=== PATIENT | male | born 1975 | race Caucasian/White ===

== ENCOUNTER 2024-09-28 05:33 | Inpatient (IN) | payer SELFPAY ==
[~2024-09-28] VITALS: Ht 190.5 cm; Wt 109.5 kg
[2024-09-28] VITALS (17 sets, daily range): BP systolic 119–159; BP diastolic 65–94; PULSE 94–119; RESP 7–19; TEMP 97.6–98.8; O2SAT 91–100
--- NOTE | 2024-09-28 05:45 | VISIT NOTE ---
ED Rapid Medical Assessment History This is a 49-year-old previously healthy gentleman with no prior history of abdominal surgeries presents for evaluation of lower abdominal pain, mostly concentrated in the left lower quadrant that began at midnight, no obvious trigger, trauma provocation. The particular palliating or aggravating factors were elicited with the gentleman. The pain is moderate to severe in its intensity. It is not migratory, not ripping, not tearing. Did not attempt to treat it. This never happened in the past. Denies any concerns for tobacco, alcohol or illicit substances use Exam: GENERAL: Awake, alert, oriented, GCS 15, no apparent distress, non-toxic appearing, answers questions, follows commands appropriately. Examined in bed 1. HEENT: Atraumatic, normocephalic, pupils equal, extraocular muscles intact, sclerae anicteric, mucus membranes moist, oropharynx is clear, no stridor. NECK: supple, full active range of motion, trachea midline, no thyromegaly, no lymphadenopathy, no JVD. CARDIOVASCULAR: regular rate/rhythm, no murmurs/gallops/rubs, Pulses are 2+ in all extremities and symmetric. Capillary refill less than 2 seconds. PULMONARY: Nonlabored, good air movement ,no respiratory distress, speaking in full sentences, clear to auscultation bilaterally, no wheezing, no ronchi, no rales, no accessory muscle use. GASTROINTESTINAL: Soft, lower abdominal tenderness to palpation reproducing chief complaint, mostly concentrated in the left lower quadrant, no guarding or rebound, non-distended, normal active bowel sounds, no organomegaly, no pulsatile masses, no CVA tenderness. NEUROLOGIC: Lucid with normal mental status. Normal facial symmetry. Moves all extremities symmetrically and with purpose. No truncal ataxia. Speech is fluid without evidence of dysarthria or aphasia, no focal deficits appreciated. MUSCULOSKELETAL: There is full range of motion of all extremities. There is no joint pain or joint swelling or joint erythema. There is no muscle pain or tenderness or swelling. EXTREMITIES: warm, well-perfused, no cyanosis, no clubbing, no edema, no acute deformities. Skin: warm, dry, no rashes or lesions, no jaundice, no petechiae orpurpura. No ecchymosis. PSYCHIATRIC: Normal affect, normal insight, normal concentration. Focused exam: [] Assessment and Plan Differential diagnosis considered includes acute appendicitis, acute cholecystitis, pancreatitis, gastritis, PUD, diverticulitis, mesenteric ischemia, abdominal aortic aneurysm, bowel obstruction, enteritis, colitis, fecal impaction, volvulus, IBS, inflammatory bowel disease, specific food intolerance, peritonitis, perforated viscous, malignancy, UTI, abscess, and abdominal pain NOS. History, physical exam, and workup exclude many of the more serious causes listed above. We will obtain laboratory workup, CT, provide with pain medication and nausea palliation Initial impression: 1. Lower abdominal pain MALCOLM VALENTINE DO Sep 28, 2024 05:45
[2024-09-28] MEDS: morphine 4 MG/ML inj SYRINge IV ONE ×2 (05:58→07:27)
[2024-09-28] MEDS: ondansetron/PF 4mg/2ml inj IV ONE (06:00)
[2024-09-28] MEDS ORDERED: iohexol 300mg/ml 100ml inj. ONE (06:32)
--- NOTE | 2024-09-28 06:42 | Physician Documentation ---
History of Present Illness Chief Complaint: Abdominal Pain w/vomiting Stated Complaint: ABDOMINAL PAIN Time Seen by MD: 06:19 OK to notify your PCP?: Yes Source: patient, RN/MD, RN notes reviewed Mode of Arrival: POV Exam Limitations: no limitations HPI This is a 49-year-old previously healthy gentleman with no prior history of abdominal surgeries presents for evaluation of lower abdominal pain, mostly concentrated in the left lower quadrant that began at midnight, no obvious trigger, trauma provocation. The particular palliating or aggravating factors were elicited with the gentleman. The pain is moderate to severe in its intensity. It is not migratory, not ripping, not tearing. Did not attempt to treat it. This never happened in the past. Denies any concerns for tobacco, alcohol or illicit substances use Medication Reconciliation Allergies: Coded Allergies: No Known Allergies (Unverified , 09/28/24) Miscellaneous Medications Home Med List (No Home Medications), (Reported) Past Medical History Past Medical History: No Pertinent History Past Surgical History: no surgical history Smoking Status: Never smoker Alcohol Use: None Drug Use: none Lives In: Home Review of Systems All Other Systems at this time: Reviewed and Negative ROS As stated above in the HPI, otherwise all systems are reviewed and negative. Physical Exam Vital Signs: RN Vital Signs have been reviewed: Yes, Temperature: 98.0, Heart Rate: 81, Respiratory Rate: 18, BP: 163/95, Pulse Oximetry: 97, Weight: 95.450 Oxygen Flow Rate: 0 Physical Exam Exam: GENERAL: Awake, alert, oriented, GCS 15, no apparent distress, non-toxic appearing, answers questions, follows commands appropriately. Examined in bed 1. HEENT: Atraumatic, normocephalic, pupils equal, extraocular muscles intact, sclerae anicteric, mucus membranes moist, oropharynx is clear, no stridor. NECK: supple, full active range of motion, trachea midline, no thyromegaly, no lymphadenopathy, no JVD. CARDIOVASCULAR: regular rate/rhythm, no murmurs/gallops/rubs, Pulses are 2+ in all extremities and symmetric. Capillary refill less than 2 seconds. PULMONARY: Nonlabored, good air movement ,no respiratory distress, speaking in full sentences, clear to auscultation bilaterally, no wheezing, no ronchi, no rales, no accessory muscle use. GASTROINTESTINAL: Soft, lower abdominal tenderness to palpation reproducing chief complaint, mostly concentrated in the left lower quadrant, no guarding or rebound, non-distended, normal active bowel sounds, no organomegaly, no pulsatile masses, no CVA tenderness. NEUROLOGIC: Lucid with normal mental status. Normal facial symmetry. Moves all extremities symmetrically and with purpose. No truncal ataxia. Speech is fluid without evidence of dysarthria or aphasia, no focal deficits appreciated. MUSCULOSKELETAL: There is full range of motion of all extremities. There is no joint pain or joint swelling or joint erythema. There is no muscle pain or tenderness or swelling. EXTREMITIES: warm, well-perfused, no cyanosis, no clubbing, no edema, no acute deformities. Skin: warm, dry, no rashes or lesions, no jaundice, no petechiae orpurpura. No ecchymosis. PSYCHIATRIC: Normal affect, normal insight, normal concentration. Progress Progress Note 0800: Case discussed with Dr. Parkinson, surgeon, who will consult and take the patient to surgery. 0828: Dr. Sandoval, hospitalist admitted the patient. Results/Orders Reviewed/noted all lab results: Yes Results/Orders Medications Received in ER Medications (Trade) Dose Ordered Sig/Guido Route PRN Reason Start Time Stop Time Status Last Admin Dose Admin (Zofran 4mg/2ml vial) 8 mg ONCE ONCE IV 09/28/24 05:45 09/28/24 05:46 DC 09/28/24 06:00 8 MG (morphine inj.) 4 mg ONCE ONCE IV 09/28/24 05:45 09/28/24 05:46 DC 09/28/24 05:58 4 MG Vital Signs 09/28/24 09/28/24 09/28/24 09/28/24 05:38 05:46 06:11 06:28 Temp 98.0 98.0 Pulse 90 87 81 Resp 16 19 16 18 B/P (MAP) 193/114 168/99 (122) 163/95 (117) Pulse Ox 97 100 97 O2 Flow Rate 0 0 Re-Evaluation Re-Evaluation : Re-Evaluation: Improved Progress Patient presents with severe abdominal pain. He was seen by the morning physician. Patient has a leukocytosis as white count is 14. Cat scan showed positive appendicitis. Antibiotics were given fluids as well as repeated pain medications surgery was consulted and ultimately admitted to the hospitalist service for emergent surgery. There was no signs of perforation at this time. Patient seemed to have significant amounts of pain requiring narcotics. Otherwise patient was then ready and scheduled left NPO for surgery. Patient's laboratory work showed a leukocytosis of white count of 14 and 86 neutrophils borderline anemia with hemoglobin of 13 and hematocrit 40. Chemistry showed some elevated glucose at 1:57 a.m. signs mild acidosis with a CO2 of 23.6. Magnesium was low at 1.3 patient did receive magnesium supplementation. Also pain medication including Dilaudid and cefepime. Continuous school lunch monitor interpretation shows sinus tachycardia heart rate 100s, abnormal, my interpretation. Pulse oximetry monitor interpretation shows normal oxygenation at 97% room air, normal, my interpretation. EKG/XRAY/CT/US/VASC/MRI Chest X-Ray : Additional Comments EXAM: DI CHEST,SINGLE VIEW Indication: CHEST PAIN Technique: Single frontal view of the chest was obtained Comparison: None FINDINGS: Lines and Tubes: None Lungs: No focal consolidation. Pleura: No effusion. No pneumothorax. Cardiomediastinal contours: Unremarkable Bones: No acute osseous abnormality. IMPRESSION: No acute cardiopulmonary disease. Reviewed by myself (Dr. Vivar) CT : Interpreted By: radiologist CT: abdomen/pelvis With Contrast?: No Impression Exam: CT CT ABDOMEN PELVIS W/ IV CONTRAST History: Lower abdominal pain, left lower quadrant and greater than all Comparison Study: None Contrast: Type of contrast: Omnipaque 300 Contrast injected:100ml Contrast wasted: 0 TECHNIQUE: CT scan of the abdomen pelvis was performed with intravenous contrast. Coronal and sagittal reformatted images are submitted. Radiation Dose Information: CT Dose: CTDI volume is 29.4 mGy. Dose-length product is 1621.2 mGy*cm FINDINGS: Lung Bases: No acute or significant lung base finding. Normal heart size. No pleural or pericardial effusion. Liver: The liver is normal in size. No focal lesions. Normal hepatic vascular enhancement. Diffusely hypoattenuating liver parenchyma consistent with hepatic steatosis. Gallbladder and Biliary Tree: The gallbladder is unremarkable. No intrahepatic biliary ductal dilatation. The common bile duct measures 6 mm in diameter. Spleen: Unremarkable Pancreas: The pancreas is normal in appearance without focal lesions or abnormal enhancement. Adrenal Glands: Unremarkable Kidneys: Kidneys demonstrate normal symmetric enhancement without focal lesions, calculi or hydronephrosis. Bladder: Unremarkable Bowel: The stomach is grossly normal in appearance. Small bowel and colon are normal in caliber and distribution. The appendix is dilated and fluid-filled with periappendiceal fat stranding. The appendix measures 1.3 cm in diameter. The appendix contains multiple appendicoliths. Peritoneum: No pneumoperitoneum. No ascites. Lymphadenopathy: No mesenteric, retroperitoneal or periportal lymphadenopathy. Abdominal Wall and Mesentery: Unremarkable. Vasculature: The visualized abdominal aorta is normal in size and caliber. Abdominal and pelvic vessels demonstrate normal enhancement. Pelvic Organs: Unremarkable Musculoskeletal: No aggressive focal bony lesions, acute fractures or dislocation. Soft tissues: Unremarkable. IMPRESSION: 1. Acute uncomplicated appendicitis. All CT scans at this medical facility are performed using dose modulation techniques as appropriate to a performed exam including the following: Automated exposure control was utilized; adjustment of the MA and/or KV according to patient size; and use of iterative reconstruction technique. Reviewed by myself (Dr. Vivar) Medical Decision Making Additional info obtained from: old records Differential Dx:Considerations: Include: Bowel obstruction, Cholangitis, Cholelithasis, Constipation, Diverticular disease, Gastritis/PUD, Gastroenteritis, GI hemorrhage, Hernia, Hepatitis, Inflammatory BD, Ischemic bowel, Pancreatitis, Urinary obstruction, Urinary tract infection, Urolithiasis, Other Departure Time of Disposition: 08:00 Disposition: 09 ADMITTED INPATIENT Admitted to Inpatient Unit: yes, to hospitalist Impression: Primary Impression: Acute appendicitis Qualified Codes: K35.80 - Unspecified acute appendicitis Additional Impression: Hypomagnesemia Condition: Guarded Education Educated: Patient Educated regarding: diagnosis, need for follow up, other Critical Care Note Total Time (mins): 33 Critical Care Note The very real possibility of a deterioration of this patient's condition r equired the highest level of my preparedness for sudden, emergent intervention. I provided critical care services, which included medication orders, frequent reevaluations of the patient's condition and response to treatment, ordering and reviewing test results, and discussing the case with various consultants. Excludes time spent performing separately billable procedures. The critical care time associated with the care of the patient was. 33 minutes Signature Scribe Signature: Scribed for Kyle Vivar MD by Ludy Webster . 09/28/24 10:05 Attestation: The note accurately reflects work and decisions made by me.Kyle Vivar MD 09/28/24 06:42 KYLE VIVAR MD Sep 28, 2024 06:42 LUDY HOFFMANN Sep 28, 2024 10:10
--- NOTE | 2024-09-28 07:36 | RADIOLOGY REPORT ---
Exam: CT CT ABDOMEN PELVIS W/ IV CONTRAST History: Lower abdominal pain, left lower quadrant and greater than all Comparison Study: None Contrast: Type of contrast: Omnipaque 300 Contrast injected:100ml Contrast wasted: 0 TECHNIQUE: CT scan of the abdomen pelvis was performed with intravenous contrast. Coronal and sagitt al reformatted images are submitted. Radiation Dose Information: CT Dose: CTDI volume is 29.4 mGy. Dose-length product is 1621.2 mGy*cm FINDINGS: Lung Bases: No acute or significant lung base finding. Normal heart size. No pleural or pericardial effusion. Liver: The liver is normal in size. No focal lesions. Normal hepatic vascular enhancement. Diffusel y hypoattenuating liver parenchyma consistent with hepatic steatosis. Gallbladder and Biliary Tree: The gallbladder is unremarkable. No intrahepatic biliary ductal dilatat ion. The common bile duct measures 6 mm in diameter. Spleen: Unremarkable Pancreas: The pancreas is normal in appearance without focal lesions or abnormal enhancement. Adrenal Glands: Unremarkable Kidneys: Kidneys demonstrate normal symmetric enhancement without focal lesions, calculi or hydroneph rosis. Bladder: Unremarkable Bowel: The stomach is grossly normal in appearance. Small bowel and colon are normal in caliber and d istribution. The appendix is dilated and fluid-filled with periappendiceal fat stranding. The appen ariel measures 1.3 cm in diameter. The appendix contains multiple appendicoliths. Peritoneum: No pneumoperitoneum. No ascites. Lymphadenopathy: No mesenteric, retroperitoneal or periportal lymphadenopathy. Abdominal Wall and Mesentery: Unremarkable. Vasculature: The visualized abdominal aorta is normal in size and caliber. Abdominal and pelvic vess els demonstrate normal enhancement. Pelvic Organs: Unremarkable Musculoskeletal: No aggressive focal bony lesions, acute fractures or dislocation. Soft tissues: Unremarkable. IMPRESSION: 1. Acute uncomplicated appendicitis. All CT scans at this medical facility are performed using dose modulation techniques as appropriate t o a performed exam including the following: Automated exposure control was utilized; adjustment of th e MA and/or KV according to patient size; and use of iterative reconstruction technique.
[2024-09-28 07:49] LABS: BASOPHILS % (AUTO) 0.2 % (0-1); EOSINOPHILS % (AUTO) 0 % (0-6); HEMATOCRIT 40.5 % (42.0-52.0); HEMOGLOBIN 13.9 g/dl (14.0-17.9); LYMPHOCYTES # (AUTO) 1.1 X10'3 (1.1-4.8); LYMPHOCYTES % (AUTO) 7.9 % (21-51); MEAN CORPUSCULAR HEMOGLOBIN 32.6 PG (27.0-31.0); MEAN CORPUSCULAR HGB CONC 34.4 g/dL (33.0-36.5); MEAN CORPUSCULAR VOLUME 94.9 FL (78-98); MEAN PLATELET VOLUME 7.5 FL (7.4-10.4); MONOCYTES # (AUTO) 0.8 X10'3 (0-0.9); MONOCYTES % (AUTO) 5.8 % (2-12); NEUTROPHILS # (AUTO) 12.1 X10'3 (1.8-7.7); NEUTROPHILS % (AUTO) 86.1 % (42-75); PLATELET COUNT 190 X10'3 (140-440); RED BLOOD COUNT 4.27 X10'6 (4.70-6.10); RED CELL DISTRIBUTION WIDTH 13.1 % (11.5-14.5)
[2024-09-28] MEDS ORDERED: cefepime 2g/NS 100ml ADVANTAGE 100 ML IV ONE (08:00)
[2024-09-28 08:02] LABS: ALANINE AMINOTRANSFERASE 59 U/L (12-78); ALBUMIN 4.2 G/DL (3.4-5.0); ALKALINE PHOSPHATASE 133 IU/L (46-116); ANION GAP 13 (8-16); ASPARTATE AMINO TRANSFERASE 61 U/L (10-37); BILIRUBIN,TOTAL 0.9 MG/DL (0.1-1.0); BLOOD UREA NITROGEN 11 MG/DL (7-18); BUN/CREATININE RATIO 10.1 (10.0-20.0); CALCIUM 8.9 MG/DL (8.5-10.1); CHLORIDE 97 MMOL/L (99-107); CREATININE 1.09 MG/DL (0.60-1.10); GLUCOSE 134 MG/DL (70-104); LIPASE 15 U/L (16-77); MAGNESIUM 1.3 MG/DL (1.5-2.4); POTASSIUM 3.6 MMOL/L (3.5-5.1); SODIUM 134 MMOL/L (135-145); TOTAL CARBON DIOXIDE 23.6 MMOL/L (24-32); TOTAL PROTEIN 8.3 G/DL (6.4-8.2); eCRCL 98 ML/MIN; eGFR 72 ML/MIN
[2024-09-28 08:06] LABS: BILIRUBIN,URINE NEGATIVE (Neg); CLARITY,URINE CLEAR (Clear); COLOR,URINE YELLOW (Yellow); GLUCOSE, URINE NEGATIVE (Neg); KETONES,URINE TRACE mg/dl (Neg); LEUKOCYTE ESTERASE ,URINE NEGATIVE (Neg); NITRITES, URINE NEGATIVE (Neg); OCCULT BLOOD,URINE NEGATIVE (Neg); PROTEIN,URINE TRACE mg/dl (Neg); UROBILINOGEN,URINE 0.2 E.U/dL (0.2-1.0)
--- NOTE | 2024-09-28 08:17 | ELECTROCARDIOGRAPH REPORT ---
[facility] Test Date: 2024-09-28 Test Time: 08:12:47 Pat Name: OJ PAREKH Department: [facility]- Patient ID: [facility]-[id number] Room: ORTHO 4021 Gender: M Spray Technician: : 1975 Requested By: JF SHOEMAKER Order Number: [id number] Reading MD: Dr. Jf Shoemaker Measurements Intervals Hallie Rate: 89 P: 45 VT: 158 QRS: 1 QRSD: 100 T: 23 QT: 387 QTc: 471 Interpretive Statements Sinus rhythm Abnormal R-wave progression, early transition Electronically Signed On 09-28-2024 14:56:[address] Jf Shoemaker Please click the below link to view image of tracing.
[2024-09-28 08:25] LABS: UA COLLECTION TYPE CLN CATCH MIDSTREAM
[2024-09-28] MEDS ORDERED: acetaminophen 325mg tablet PO PRN (08:25)
[2024-09-28] MEDS ORDERED: morphine 2 MG/ML inj. syringe IV PRN ×3 (08:25→14:45)
[2024-09-28] MEDS ORDERED: potassium Cl 40MEQ/1/2NS 520ml 520 ML IV PRN (08:25)
[2024-09-28] MEDS ORDERED: ondansetron/PF 4mg/2ml inj IV PRN ×2 (08:25→14:45)
[2024-09-28] MEDS ORDERED: HYDROcodone/acetaminophen 5mg/325mg tablet PO PRN ×2 (08:25→19:00)
[2024-09-28] MEDS ORDERED: magnesium Cl slow-release 64mg tablet PO PRN (08:25)
[2024-09-28] MEDS ORDERED: magnesium sulf-water 4G/100mL 100 ML IV PRN (08:25)
[2024-09-28] MEDS ORDERED: potassium Cl 20 mEq SR tablet PO PRN ×2 (08:25)
[2024-09-28] MEDS ORDERED: magnesium sulf-water 2g/50mL 50 ML IV PRN (08:25)
[2024-09-28 08:28] LABS: BACTERIA,URINE NONE SEEN /HPF (Neg); MUCUS STRANDS MODERATE /LPF (Neg); RBC,URINE NONE SEEN /HPF (0-2); SQUAMOUS EPITHELIAL CELL,UR FEW /LPF (FEW); WBC,URINE 0-4 /HPF (0-4)
--- NOTE | 2024-09-28 08:29 | RADIOLOGY REPORT ---
EXAM: DI CHEST,SINGLE VIEW Indication: CHEST PAIN Technique: Single frontal view of the chest was obtained Comparison: None FINDINGS: Lines and Tubes: None Lungs: No focal consolidation. Pleura: No effusion. No pneumothorax. Cardiomediastinal contours: Unremarkable Bones: No acute osseous abnormality. IMPRESSION: No acute cardiopulmonary disease.
[2024-09-28] MEDS: HYDROmorphone 1 mg/ml syringe IV ONE ×2 (08:42→10:31)
[2024-09-28] MEDS: CEFEPIME 2gm in D5W 50mL 50 ML IV ONE (09:08)
[2024-09-28] MEDS: normal saline 1000ml 1,000 ML IV SCH (09:08)
[2024-09-28 09:25] LABS: APTT 24 SECONDS (22-32); PROTHROMBIN TIME 10.7 SECONDS (9.0-12.0)
[2024-09-28] MEDS: LORazepam 2 mg/ml vial IV ONE (10:30)
[2024-09-28] MEDS: ketorolac trometh 15mg/ml vial 15 MG/ML ML IV ONE (10:31)
[2024-09-28] MEDS: normal saline 1000ML IV soln IVB ONE (10:32)
[2024-09-28] MEDS ORDERED: NO HOME MEDS (11:42)
[2024-09-28] MEDS ORDERED: morphine 4 MG/ML inj SYRINge IV PRN ×2 (14:38→14:45)
[2024-09-28] MEDS ORDERED: meperidine/PF 25mg/ml syringe IV PRN ×3 (14:45)
[2024-09-28] MEDS ORDERED: enalaprilat 1.25mg/ml 2ml vial IV PRN (14:45)
[2024-09-28] MEDS: ringers solution, lacted 1,000 ML IV SCH (14:45)
[2024-09-28] MEDS ORDERED: proCHLORperazine 10 MG/2 ml inj IV PRN (14:45)
[2024-09-28] MEDS ORDERED: labetalol 20mg/4ml (5mg/ml) syringe IV PRN (14:45)
[2024-09-28] MEDS: morphine 4 MG/ML inj SYRINge IV PRN (15:04)
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
[2024-09-28] MEDS ORDERED: BUPIVAcaine 2.5mg/ml inj 50ml vial (contains preservative) ONE (17:29)
[2024-09-28] MEDS ORDERED: LIDOcaine 1% 30ml preserv. free vial ONE (17:30)
[2024-09-28] MEDS ORDERED: fentaNYL /PF 50mcg/ml 5ml ampule ONE (17:31)
[2024-09-28] MEDS ORDERED: midazolam 1 mg/ML 2ml injection ONE (17:31)
[2024-09-28] MEDS ORDERED: LIDOcaine 2% (20mg/ml) 5ml vial ONE (17:33)
[2024-09-28] MEDS ORDERED: propofol inj 20 ML IV ONE (17:33)
--- NOTE | 2024-09-28 17:35 | CONSULTATION REPORT ---
History of Present Illness Providers to CC CC: SUNSHINE LLAMAS MD ~ Reason for Admit\Admit Dx: Acute appendicitis Refering MD: none History of Present Illness Patient developed periumbilical pain that radiated to the right lower quadrant. Presented to the emergency room where he was found to have both radiologic and clinical evidence of acute appendicitis. Appears uncomplicated and on perforated on CT scan No significant past medical history Allergies: Coded Allergies: No Known Allergies (Unverified , 09/28/24) Home Medications Home Medications Active Reported No Home Medications (Home Med List) Each Past Medical History Medical History Comment None reported Past Surgical History Surgical History Comment No past surgical history Past Family History Family History Comment Not applicable Family History: FH: breast cancer MOTHER FH: heart attack FATHER Past Social History Social History Comment Negative x3 Physical Exam Last Vital Signs Recorded: RN Vital Signs have been reviewed: Yes, Temperature: 98.8, Source: Oral, Heart Rate: 105, Respiratory Rate: 22, BP: 159/94, Pulse Oximetry: 94, Weight: 109.500 General Appearance: alert, WD/WN EENT: PERRL/EOMI Neck: normal inspection, supple Respiratory: lungs clear Cardiovascular: normal peripheral pulses, regular rate, rhythm Gastrointestinal Soft and nondistended No palpable masses Right lower quadrant tenderness to palpation at McBurney's point Tenderness to percussion No rebound Rectal: deferred Back: normal inspection, no CVA tenderness Extremities: normal range of motion Neurologic: oriented x4 Psychiatric: normal mood/affect; No: anxiety Skin: normal color Review of Systems ROS ROS Comments: Reviewed and negative with the exception of those found in the history of present illness Results Diagram Lab Result Diagram: 09/28/24 0727 09/28/24 0727 Assessment/Plan Problems/Diagnosis: (1) Acute appendicitis Assessment & Plan: The risks, benefits, and alternatives to a robotic assisted, laparoscopic possible open appendectomy were discussed with the patient. Risks include, but are not limited to, bleeding, infection, injury to intra-abdominal structures, leakage from the intestine and the need for additional procedures. Patient verbalized understanding and wishes to proceed with surgery. We will do so today as soon as possible. Problem Qualifiers (1) Acute appendicitis: Qualified Codes: K35.80 - Unspecified acute appendicitis SUNSHINE LLAMAS MD Sep 28, 2024 17:35
[2024-09-28] MEDS ORDERED: ceFOXitin 1000 MG inj ONE ×2 (18:21)
[2024-09-28] MEDS ORDERED: dexamethasone sod phosphate 4mg/ml inj. ONE (18:22)
[2024-09-28] MEDS ORDERED: ondansetron/PF 4mg/2ml inj ONE (18:22)
[2024-09-28] MEDS ORDERED: rocuronium 10mg/ml inj IV ONE (18:22)
[2024-09-28] MEDS ORDERED: sevoflurane 250ml liquid IH ONE (18:24)
[2024-09-28] MEDS: BUPIVAcaine/PF 2.5 mg/ml (0.25%) 30ml vial IJ ONE (18:30)
[2024-09-28] MEDS ORDERED: glycopyrrolate 0.2mg/ml inj ONE (18:56)
[2024-09-28] MEDS ORDERED: acetaminophen 1,000mg/100ml IV 100 ML IV ONE (19:00)
[2024-09-28] MEDS ORDERED: PCA WASTE DOCUMENTATION 1 MG ML MC SCH (19:00)
[2024-09-28] MEDS ORDERED: naloxone 0.4 mg/ml inj IV PRN (19:00)
--- NOTE | 2024-09-28 19:05 | OPERATIVE REPORT ---
Operative Report Providers to CC CC: WILBER LLAMAS MD ~ Date of Procedure: Sep 28, 2024 Pre-Operative Diagnosis: ACUTE APPENDICITIS Post-Operative Diagnosis SAME as PRE-Op Procedure Performed Robotic assisted, laparoscopic appendectomy Surgeon: Wilber Llamas MD FACS Industrial Electrical Technician None Anesthesiologist: Fracisco Alfonso Type of Anesthesia: General Findings: Acute non perforated appendicitis Wound class III Complications None Prosthetics\Implants used: None Estimated Blood Loss: Minimal Specimen Removed: Appendix Description of Procedure: Patient was brought to the operating room and identified by the nursing staff and the attending physician. Patient was placed supine and a general anesthesia was induced. The patient's abdomen was prepped and draped in the standard sterile fashion. Preoperative antibiotics were given. Veress needle technique was used at [place] and the abdomen was insufflated without incident. Under laparoscopic visualization a 12 mm port was placed in the right upper quadrant. Laparoscope was inserted and additional 8.5 mm robotic ports were placed in the left periumbilical and left lower quadrant. Patient was placed in Trendelenburg position with the right side up. Da Arnaldo robotic arm was docked to the patient and instruments guided into the abdomen under laparoscopic visualization. The appendix was readily identified. There were fibropurulent exudates on the surface but no evidence of abscess or rupture. The base appeared normal while the majority of the appendix was dilated and hyperemic. Window was created through the mesoappendix using vessel sealer device and the mesoappendix was divided. Base of the appendix was divided with a robotic linear cutting stapler. Appendix was set aside. Hemostasis was assured. Instruments were removed. The da Arnaldo robotic arm was undocked from the patient. The appendix was placed in a laparoscopic retrieval bag. Right upper quadrant port was removed with the specimen in the retrieval bag. Fascia at the 12 mm port site was closed percutaneously with 0 Vicryl suture. Abdomen was deflated and remaining ports removed. Skin was closed at all sites with 4-0 Monocryl sutures in a subcuticular fashion . Dressings were applied. Patient was awakened and taken to the postanesthesia care unit in stable condition. Counts repoted as correct: Yes WILBER LLAMAS MD Sep 28, 2024 19:05
[2024-09-28] MEDS: K and/or MAG REPLACEMENT MC SCH (20:00)
[2024-09-28] MEDS: HYDROmorphone inj. 0.5 MG/0.5 ML DISP.SYRIN IV PRN (22:34)
--- NOTE | 2024-09-28 23:16 | Visit Coding Note ---
Date of Service: Sep 28, 2024 Billing Provider: MARCUS REYES MD Common Visit Codes: [id number] INP/OBS CARE (MOD) MARCUS REYES MD Sep 28, 2024 23:16
[2024-09-29 02:00] VITALS: BP 125/81; PULSE 75; RESP 17; TEMP 97.7; O2SAT 96
[2024-09-29 04:49] LABS: BASOPHILS % (AUTO) 0.1 % (0-1); EOSINOPHILS % (AUTO) 0 % (0-6); HEMATOCRIT 33.7 % (42.0-52.0); HEMOGLOBIN 11.5 g/dl (14.0-17.9); LYMPHOCYTES # (AUTO) 0.5 X10'3 (1.1-4.8); LYMPHOCYTES % (AUTO) 3.7 % (21-51); MEAN CORPUSCULAR HGB CONC 34.2 g/dL (33.0-36.5); MEAN CORPUSCULAR VOLUME 96.7 FL (78-98); MEAN PLATELET VOLUME 7.5 FL (7.4-10.4); MONOCYTES # (AUTO) 0.4 X10'3 (0-0.9); NEUTROPHILS # (AUTO) 12.6 X10'3 (1.8-7.7); NEUTROPHILS % (AUTO) 93.2 % (42-75); PLATELET COUNT 128 X10'3 (140-440); RED BLOOD COUNT 3.49 X10'6 (4.70-6.10); RED CELL DISTRIBUTION WIDTH 13.9 % (11.5-14.5); WHITE BLOOD COUNT 13.5 X10'3 (4.5-11.0)
[2024-09-29 05:03] LABS: ANION GAP 5 (8-16); BLOOD UREA NITROGEN 7 MG/DL (7-18); CALCIUM 8.1 MG/DL (8.5-10.1); CHLORIDE 104 MMOL/L (99-107); CREATININE 0.87 MG/DL (0.60-1.10); GLUCOSE 153 MG/DL (70-104); POTASSIUM 3.7 MMOL/L (3.5-5.1); SODIUM 138 MMOL/L (135-145); eCRCL 123 ML/MIN; eGFR > 90 ML/MIN
[2024-09-29 07:00] VITALS: BP 115/74; PULSE 89; RESP 18; TEMP 97.6; O2SAT 96
[2024-09-29] MEDS: CefTRIAXone/D5W-Rocephin 1gm 50 ML IV SCH (08:33)
[2024-09-29 10:00] VITALS: BP 125/68; PULSE 76; RESP 18; TEMP 98.1; O2SAT 95
[2024-09-29 16:06] VITALS: RESP 16
[2024-09-29] MEDS: HYDROcodone/acetaminophen 10/325mg tab PO PRN (16:06)
--- NOTE | 2024-09-30 08:25 | DISCHARGE SUMMARY ---
Discharge Summary Providers to CC ~ Discharge Summary Admission Diagnosis: ACUTE APPENDICITIS Hospital Course DATE OF ADMISSION: 09/28/2024 DATE OF DISCHARGE: 09/29/2024 Discharge Diagnosis\Comment: Acute appendicitis Operations\Procedures: Appendectomy Consultants: DR. LLAMAS Complications: NONE Condition on DC: Stable Discontinued Medications: Home Med List (No Home Medications) Each Discharge Summary: Reason for admission: 49 years old male presented to the ER for evaluation of right lower quadrant pain Please refer to admission H&P for more details Hospital course: Patient was admitted on the monitored floor under hospital course as follows. Acute appendicitis, confirmed on the CT scan of the abdomen and pelvis. Surgery was consulted and patient underwent appendectomy. He has done well postoperatively. Patient is encouraged to ambulate. He has been cleared for discharge by Dr. Llamas. Discharge exam: Examined the patient on the day of discharge Awake alert oriented in no acute distress , HEENT: Normocephalic, atraumatic, extraocular movements are intact, sclerae anicteric , conjunctiva pink, moist oral mucosa. Neck supple, no JVD Chest clear to auscultation, no wheezes crackles rhonchi Heart regular rate rhythm, no murmur or gallop Abdomen: Soft, mild tenderness , no organomegaly Extremities no cyanosis clubbing or edema Neuro exam nonfocal Skin: Bandages over the incisions noted Disposition: Home *Problems/Diagnosis: (1) Acute appendicitis Status: Acute Total Time Spent on D/C: Up to 30 Minutes Date of Service: Sep 29, 2024 Billing Provider: MARCUS REYES MD Common Visit Codes: 57842-VID/OBS DISCH DAY <30MIN Problem Qualifiers (1) Acute appendicitis: Qualified Codes: K35.80 - Unspecified acute appendicitis MARCUS REYES MD Sep 30, 2024 08:25
--- NOTE | 2024-09-30 09:48 | PATHOLOGY REPORT ---
[facility] [address] [place] [address] SURGICAL PATHOLOGY REPORT CaseNumber: [id number] Surgeon:Wilber Parkinson M.D. CLINICAL INFORMATION CLINICAL INFORMATION: Acute appendicitis. DIAGNOSIS DIAGNOSIS: APPENDIX; APPENDECTOMY - ACUTE GANGRENOUS APPENDICITIS WITH SEROSITIS. MICROSCOPIC DESCRIPTION MICROSCOPIC DESCRIPTION: Performed. GROSS DESCRIPTION GROSS DESCRIPTION: Received in a container of formalin labeled with the patient's name, number, and "appendix" is a uniform caliber vermiform appendix which measures 8.5 cm long by 1.5 cm in diameter. The serosa is congested with areas of indurated and fibrinopurulent exudate. There is approximately 2.5 cm of attached periappendiceal fat. Sectioning reveals a dilated lumen containing stool and blood y material but no fecalith. Email Producer sections including the proximal, mid, and distal portion o f the appendix are submitted as A1. The time at which the specimen was removed was 1845. The time at which the specimen was placed in formalin was 1850. ([email or web address]) Electronically signed by: Daniel Cline, 09/30/2024 9:16:00 AM
== END 2024-09-29 18:22 | disposition home or self-care (01) | DRG 399 ==
LOC: ER 05:34 → ED HOLD 08:28 → ORTHO 4S 11:44
PROVIDERS: ADMIT Internal Medicine; ATTEND Internal Medicine
PROC: 8E0W4CZ Robotic Assisted Procedure of Trunk Region, Percutaneous Endoscopic Approach (ICD-10-PCS; 2024-09-28)
PROC: 0DTJ4ZZ Resection of Appendix, Percutaneous Endoscopic Approach (ICD-10-PCS; principal; 2024-09-28 17:52)
DX: K35.80 Unspecified acute appendicitis (principal); E83.42 Hypomagnesemia
CPT/HCPCS: 96365; 96375; 96376; 99291; Z7506; Z7508; 36415; 71045; 74177; 80048; 80053; 81001; 82948; 83690; 83735; 84484; 85025; 85610; 85730; 87081; 93005; A4215; A4615; A4618; G0378; J0131; J0692; J0694; J0696; J1100; J1171; J1885; J2003; J2060; J2250; J2270; J2405; J2704; J3010; J3490; J7030; J7120; Q9967